=== PATIENT | male | born 1995 | race Hispanic/Latino ===

== ENCOUNTER 2022-01-19 00:49 | Inpatient (IN) | payer SELFPAY ==
[2022-01-19 02:24] LABS: #Eosinphils 0.1 thou/uL (0.0-0.7); #Lymphocytes 1.8 thou/uL (1.20-3.40); #Monocytes 0.6 thou/uL (0.11-0.59); #Neutrophils 12.6 thou/uL (1.40-6.50); %Basophils 0.3 % (0.0-1.0); %Eosinophils 0.8 % (0.0-10.0); %Lymphocytes 11.9 % (21.0-51.0); %Neutrophils 83.1 % (42.0-75.0); Hemoglobin 14.7 g/dL (14.0-18.0); Mean Corpuscular HGB CONC 35.9 g/dL (32.0-36.0); Mean Corpuscular Hemoglobin 32.2 pg (27.0-31.0); Mean Corpuscular Volume 89.7 fL (78.0-98.0); Mean Platelet Volume 7.6 fL (7.4-10.4); Platelet Count 206 thou/uL (130-400); RBC Distribution Width 12.2 % (11.5-14.5); Red Blood Cell (RBC) Count 4.57 mill/uL (4.70-6.10); White Blood Cell (WBC) Count 15.2 thou/uL (4.8-10.8)
[2022-01-19] MEDS ORDERED: Ketorolac Tromethamine 30 MG/ML VIAL ONE ×2 (02:40→12:11)
[2022-01-19 02:44] LABS: Amphetamine Not Detected (NotDetected); Barbiturates Screen Not Detected (NotDetected); Benzodiazepine Screen Not Detected (NotDetected); Cocaine Metabolite Screen Not Detected (NotDetected); Methadone Not Detected (NotDetected); Methamphetamine Not Detected (NotDetected); Opiate Screen Not Detected (NotDetected); Oxycodone Screen Not Detected (NotDetected); Phencyclidine (PCP) Not Detected (NotDetected); THC/Cannabinoid Screen Not Detected (NotDetected); Tricyclic Screen Not Detected (NotDetected)
[2022-01-19 02:45] LABS: ALT (SGPT) 20 U/L (8-55); AST (SGOT) 24 U/L (5-34); Albumin 4.4 g/dL (3.5-5.0); Alcohol 224 mg/dL (Less than 10); Alkaline Phosphatase 86 U/L (40-110); Anion Gap 16 mmol/L (10-20); BUN (Urea Nitrogen) 8 mg/dL (8.9-20.6); Bilirubin, Total 0.9 mg/dL (0.2-1.2); Calc. Creatinine Clearance 0 mL/min (70-130); Calcium 8.7 mg/dL (7.8-10.44); Carbon Dioxide 19 mmol/L (22-29); Chloride 105 mmol/L (98-107); Globulin 3.3 g/dL (2.4-3.5); Glucose 129 mg/dL (70-105); Potassium 3.3 mmol/L (3.5-5.1); Protein, Total 7.7 g/dL (6.0-8.3); Sodium 137 mmol/L (136-145)
[2022-01-19] MEDS ORDERED: Ondansetron PF 4 MG/2 ML Vial IVP PRN (03:15)
[2022-01-19] MEDS ORDERED: traMADol HCl 50 MG TAB PO PRN (03:15)
[2022-01-19] MEDS ORDERED: Promethazine HCl 25 MG/ML VIAL IM PRN (03:15)
[2022-01-19] MEDS ORDERED: Ketorolac Tromethamine 30 MG/ML VIAL IVP SCH (03:30)
[2022-01-19] MEDS ORDERED: Magnesium 2 GM/50 ML(in water) 2 GM in Premix Bag 1 BAG IVPB SCH (03:30)
[2022-01-19] MEDS ORDERED: CEFAZOLIN 2 GM VIAL ONE (03:49)
[2022-01-19] MEDS ORDERED: Potassium Phosphate 30 MMOL in Sodium Chloride 0.9% 250 ML 250 ML IVPB SCH (04:00)
[2022-01-19 04:07] LABS: Magnesium 2.1 mg/dL (1.6-2.6); Phosphorus 3.9 mg/dL (2.3-4.7)
[2022-01-19 04:23] LABS: Prothrombin Time 13.1 sec (12.0-14.7)
[2022-01-19 04:24] LABS: PTT 27.1 sec (22.9-36.1)
[2022-01-19 04:33] VITALS: BMI 29.0
[2022-01-19] MEDS: Sodium Chloride 0.9% 1,000 ML IV SCH ×2 (04:47→12:02)
[2022-01-19] MEDS: Ketorolac Tromethamine 30 MG/ML VIAL IVP SCH ×3 (06:39→17:15)
[2022-01-19 07:17] LABS: SARS-CoV-2 NAA Rapid Test Not Detected (NotDetected)
[2022-01-19] MEDS ORDERED: CEFAZOLIN 2 GM in Sodium Chloride 0.9% 100 ML IVPB SCH (08:00)
[2022-01-19] MEDS: Famotidine 20 MG TAB PO SCH ×2 (09:04→20:09)
[2022-01-19] MEDS: Morphine 2 MG/ML VIAL SLOW IVP PRN ×2 (09:09→20:08)
[2022-01-19] MEDS: Polyethylene Glycol 3350 17 GM Packet PO SCH (09:11)
[2022-01-19] MEDS: Senokot S 8.6-50 MG TAB PO SCH ×2 (09:11→20:09)
[2022-01-19] MEDS ORDERED: ceFAZolin 2 GM/Dextrose 50 ML 2 GM in Premix Bag 1 BAG IVPB SCH (10:30)
[2022-01-19] MEDS ORDERED: fentaNYL Citrate/PF 100 MCG/2 ML SYRINGE ONE ×2 (11:59→12:22)
[2022-01-19] MEDS ORDERED: CEFAZOLIN 1 GM VIAL ONE (12:00)
[2022-01-19] MEDS ORDERED: Ondansetron PF 4 MG/2 ML Vial ONE (12:11)
[2022-01-19] MEDS ORDERED: Rocuronium Bromide 10 MG/ML (10ML VIAL) ONE (12:11)
[2022-01-19] MEDS ORDERED: Glycopyrrolate 0.2 MG/ML 5 ML SYRINGE ONE (12:11)
[2022-01-19] MEDS ORDERED: Dexamethasone 20 MG/5 ML VIAL ONE (12:11)
[2022-01-19] MEDS ORDERED: PROPOFOL 200 MG/20 ML VIAL ONE (12:11)
[2022-01-19] MEDS ORDERED: Succinylcholine 200 MG/10 ml SYRINGE FS ONE (12:11)
[2022-01-19] MEDS ORDERED: Lidocaine 1% PF 5 ML VIAL ONE (12:11)
[2022-01-19] MEDS ORDERED: Dexmedetomidine 200 MCG/2 ML VIAL ONE (13:57)
[2022-01-19] MEDS ORDERED: Fentanyl 100 MCG/2 ML VIAL ONE (15:59)
[2022-01-19] MEDS: traMADol HCl 50 MG TAB PO PRN (22:22)
[2022-01-19] MEDS: CEFAZOLIN 2 GM in Sodium Chloride 0.9% 100 ML IVPB SCH (22:25)
[2022-01-20] MEDS: Ketorolac Tromethamine 30 MG/ML VIAL IVP SCH ×2 (00:01→05:05)
[2022-01-20] MEDS: CEFAZOLIN 2 GM in Sodium Chloride 0.9% 100 ML IVPB SCH (05:05)
[2022-01-20] MEDS: Sodium Chloride 0.9% 1,000 ML IV SCH ×2 (06:41→11:48)
[2022-01-20] MEDS: Senokot S 8.6-50 MG TAB PO SCH ×2 (08:23→21:15)
[2022-01-20] MEDS: Famotidine 20 MG TAB PO SCH ×2 (08:23→21:16)
[2022-01-20] MEDS: Polyethylene Glycol 3350 17 GM Packet PO SCH (08:24)
[2022-01-20] MEDS: traMADol HCl 50 MG TAB PO PRN (12:02)
[2022-01-20] MEDS: traMADol HCl 50 MG TAB PO SCH ×2 (17:07→23:51)
[2022-01-21] MEDS: traMADol HCl 50 MG TAB PO SCH ×4 (06:50→23:30)
[2022-01-21] MEDS: Enoxaparin Sodium 40 MG/0.4 ML SYRINGE SC SCH (09:31)
[2022-01-21] MEDS: Famotidine 20 MG TAB PO SCH ×2 (09:31→20:33)
[2022-01-21] MEDS: Senokot S 8.6-50 MG TAB PO SCH ×2 (09:34→20:33)
[2022-01-21] MEDS: Polyethylene Glycol 3350 17 GM Packet PO SCH (09:34)
[2022-01-21] MEDS: Acetaminophen 325 MG TAB PO PRN (20:33)
[2022-01-22] MEDS: traMADol HCl 50 MG TAB PO SCH ×3 (05:40→17:08)
[2022-01-22] MEDS: Enoxaparin Sodium 40 MG/0.4 ML SYRINGE SC SCH (08:25)
[2022-01-22] MEDS: Polyethylene Glycol 3350 17 GM Packet PO SCH (08:25)
[2022-01-22] MEDS: Famotidine 20 MG TAB PO SCH ×2 (08:25→22:03)
[2022-01-22] MEDS: Senokot S 8.6-50 MG TAB PO SCH ×2 (08:25→22:02)
[2022-01-22] MEDS: Cyclobenzaprine 10 MG TAB PO PRN (22:02)
[2022-01-22] MEDS: traMADol HCl 50 MG TAB PO PRN (22:03)
[2022-01-23] MEDS: traMADol HCl 50 MG TAB PO SCH ×4 (01:36→18:46)
[2022-01-23 08:00] LABS: #Eosinphils 0.3 thou/uL (0.0-0.7); #Lymphocytes 1.8 thou/uL (1.20-3.40); #Monocytes 0.5 thou/uL (0.11-0.59); #Neutrophils 2.9 thou/uL (1.40-6.50); %Basophils 0.5 % (0.0-1.0); %Eosinophils 5.2 % (0.0-10.0); %Lymphocytes 32.9 % (21.0-51.0); %Monocytes 9.1 % (0.0-10.0); %Neutrophils 52.3 % (42.0-75.0); Hemoglobin 13.1 g/dL (14.0-18.0); Mean Corpuscular Hemoglobin 32.2 pg (27.0-31.0); Mean Platelet Volume 7.2 fL (7.4-10.4); Platelet Count 255 thou/uL (130-400); RBC Distribution Width 12.1 % (11.5-14.5); Red Blood Cell (RBC) Count 4.06 mill/uL (4.70-6.10); White Blood Cell (WBC) Count 5.5 thou/uL (4.8-10.8)
[2022-01-23] MEDS: Famotidine 20 MG TAB PO SCH ×2 (08:02→20:20)
[2022-01-23] MEDS: Enoxaparin Sodium 40 MG/0.4 ML SYRINGE SC SCH (08:02)
[2022-01-23] MEDS: Senokot S 8.6-50 MG TAB PO SCH ×2 (08:03→20:21)
[2022-01-23] MEDS: Polyethylene Glycol 3350 17 GM Packet PO SCH (08:03)
[2022-01-23 08:26] LABS: Anion Gap 13 mmol/L (10-20); BUN (Urea Nitrogen) 9 mg/dL (8.9-20.6); Calc. Creatinine Clearance 190 mL/min (70-130); Calcium 9.5 mg/dL (7.8-10.44); Carbon Dioxide 26 mmol/L (22-29); Chloride 102 mmol/L (98-107); Glucose 100 mg/dL (70-105); Magnesium 2.2 mg/dL (1.6-2.6); Phosphorus 4.2 mg/dL (2.3-4.7); Potassium 3.8 mmol/L (3.5-5.1); Sodium 137 mmol/L (136-145)
[2022-01-23] MEDS ORDERED: Fentanyl 100 MCG/2 ML VIAL ONE (10:59)
[2022-01-23] MEDS ORDERED: Midazolam HCl 2 mg/2 ml Vial ONE (10:59)
[2022-01-23] MEDS ORDERED: fentaNYL Citrate/PF 100 MCG/2 ML SYRINGE ONE (12:19)
[2022-01-23] MEDS ORDERED: Sodium Chloride 0.9% 100 ML ONE (12:21)
[2022-01-23] MEDS ORDERED: CEFAZOLIN 2 GM VIAL ONE (12:21)
[2022-01-23] MEDS ORDERED: PROPOFOL 200 MG/20 ML VIAL ONE (12:36)
[2022-01-23] MEDS ORDERED: Bupivacaine HCl 0.5%/Epinephrine 1:200,000/PF 30 ml Vial ONE (12:36)
[2022-01-23] MEDS ORDERED: Ondansetron PF 4 MG/2 ML Vial ONE (12:36)
[2022-01-23] MEDS ORDERED: Dexamethasone 20 MG/5 ML VIAL ONE (12:36)
[2022-01-23] MEDS ORDERED: Lidocaine 1% PF 5 ML VIAL ONE (12:36)
[2022-01-23] MEDS ORDERED: Bacitracin Zinc Ointment 30 gm TUBE ONE (12:58)
[2022-01-23] MEDS ORDERED: Neomycin-Polymyxin 1 ML AMP ONE (12:58)
[2022-01-23] MEDS: Cyclobenzaprine 10 MG TAB PO PRN (20:20)
[2022-01-23] MEDS: CEFAZOLIN 1 GM in Sodium Chloride 0.9% 100 ML IVPB SCH (20:21)
[2022-01-24] MEDS: traMADol HCl 50 MG TAB PO SCH ×3 (00:27→14:06)
[2022-01-24] MEDS: CEFAZOLIN 1 GM in Sodium Chloride 0.9% 100 ML IVPB SCH ×2 (04:58→14:07)
[2022-01-24] MEDS: Cyclobenzaprine 10 MG TAB PO PRN (05:00)
[2022-01-24] MEDS: traMADol HCl 50 MG TAB PO PRN (05:01)
[2022-01-24 06:40] LABS: Anion Gap 15 mmol/L (10-20); BUN (Urea Nitrogen) 11 mg/dL (8.9-20.6); Calc. Creatinine Clearance 190 mL/min (70-130); Calcium 8.7 mg/dL (7.8-10.44); Carbon Dioxide 18 mmol/L (22-29); Chloride 104 mmol/L (98-107); Glucose 109 mg/dL (70-105); Magnesium 2.2 mg/dL (1.6-2.6); Phosphorus 3.9 mg/dL (2.3-4.7); Potassium 4.2 mmol/L (3.5-5.1); Sodium 133 mmol/L (136-145)
[2022-01-24 07:59] LABS: #Eosinphils 0.1 thou/uL (0.0-0.7); #Lymphocytes 2.1 thou/uL (1.20-3.40); #Monocytes 0.8 thou/uL (0.11-0.59); #Neutrophils 4.4 thou/uL (1.40-6.50); %Basophils 0.6 % (0.0-1.0); %Eosinophils 1.2 % (0.0-10.0); %Lymphocytes 28.9 % (21.0-51.0); %Monocytes 10.6 % (0.0-10.0); %Neutrophils 58.7 % (42.0-75.0); Mean Corpuscular Hemoglobin 31.5 pg (27.0-31.0); Mean Corpuscular Volume 92.7 fL (78.0-98.0); Mean Platelet Volume 6.7 fL (7.4-10.4); Platelet Count 318 thou/uL (130-400); Red Blood Cell (RBC) Count 3.82 mill/uL (4.70-6.10); White Blood Cell (WBC) Count 7.4 thou/uL (4.8-10.8)
[2022-01-24] MEDS: Enoxaparin Sodium 40 MG/0.4 ML SYRINGE SC SCH (09:41)
[2022-01-24] MEDS: Famotidine 20 MG TAB PO SCH (09:41)
[2022-01-24] MEDS: Acetaminophen 325 MG TAB PO PRN (09:42)
[2022-01-24] MEDS: Senokot S 8.6-50 MG TAB PO SCH (09:42)
[2022-01-24] MEDS: Polyethylene Glycol 3350 17 GM Packet PO SCH (09:42)
[2022-01-24] MEDS ORDERED: Gabapentin 300 MG CAP PO SCH ×2 (11:45→15:00)
[2022-01-24] MEDS ORDERED: Acetaminophen 500 MG TAB PO SCH (15:00)
[2022-01-24 16:33] VITALS: BP 125/86; TEMP 98.4
== END 2022-01-24 19:30 | disposition home or self-care (01) | DRG 493 ==
LOC: ERS 00:49 → SURG B 03:12 → EDBD 03:12
PROVIDERS: ADMIT Surgery; ATTEND Surgery
PROC: 0PSF04Z Reposition Right Humeral Shaft with Internal Fixation Device, Open Approach (ICD-10-PCS; principal; 2022-01-19)
PROC: 0PSH04Z Reposition Right Radius with Internal Fixation Device, Open Approach (ICD-10-PCS; 2022-01-23)
PROC: 0PSP04Z Reposition Right Metacarpal with Internal Fixation Device, Open Approach (ICD-10-PCS; 2022-01-23)
PROC: 3E0T3BZ Introduction of Anesthetic Agent into Peripheral Nerves and Plexi, Percutaneous Approach (ICD-10-PCS; 2022-01-23)
DX: S42.491A Other displaced fracture of lower end of right humerus, initial encounter for closed fracture (principal); S52.511A Displaced fracture of right radial styloid process, initial encounter for closed fracture; S52.571A Other intraarticular fracture of lower end of right radius, initial encounter for closed fracture; M96.69 Fracture of other bone following insertion of orthopedic implant, joint prosthesis, or bone plate; S62.302A Unspecified fracture of third metacarpal bone, right hand, initial encounter for closed fracture; Y83.8 Other surgical procedures as the cause of abnormal reaction of the patient, or of later complication, without mention of misadventure at the time of the procedure; Z20.822 Contact with and (suspected) exposure to COVID-19; F10.129 Alcohol abuse with intoxication, unspecified; W10.9XXA Fall (on) (from) unspecified stairs and steps, initial encounter; Y90.7 Blood alcohol level of 200-239 mg/100 ml
CPT/HCPCS: 29105; 36415; 51701; 70450; 71045; 76000; 80048; 80053; 80306; 80307; 83735; 84100; 85025; 85610; 85730; 86850; 86900; 86901; 96374; 96375; C1713; C1769; C1894; G0390; J0690; J1100; J1650; J1885; J2250; J2270; J2405; J2704; J3010; J3475; J3490; J7050; U0002